=== PATIENT | female | born 1970 | race Hispanic/Latino ===

== ENCOUNTER 2018-04-01 03:17 | Emergency (ER) | payer BC ==
[2018-04-01 03:33] LABS: Blood, Urine Large (Negative); Clarity Cloudy (Clear)
[2018-04-01 03:34] LABS: Glucose, Urine (Dipstick) Unable to Interpret mg/dL (Negative); Leukocyte Unable to Interpret (Negative); Nitrite Unable to Interpret (Negative); Specific Gravity, Urine 1.022 (1.002-1.036)
[2018-04-01 03:35] LABS: Bilirubin Unable to Interpret (Negative); Urobilinogen UNABLE TO INTERPRET mg/dL (0.2-1.0)
[2018-04-01 03:40] LABS: Protein, Urine (Dipstick) > or equal to 300 mg/dL (Neg-Trace)
[2018-04-01 03:44] LABS: Bacteria/HPF 3+ HPF (None Seen); Crystals/HPF None Seen HPF (Negative); Hyaline Casts/LPF NONE SEEN LPF (0-3 Hyaline); RBC/HPF GREATER THAN 50-TNTC HPF (0-3)
[2018-04-01] MEDS ORDERED: cefTRIAXone\\ROCEPHIN 1 GM VIAL ONE (03:45)
[2018-04-01] MEDS ORDERED: Ketorolac Tromethamine 30 MG/ML VIAL ONE (03:45)
[2018-04-01] MEDS ORDERED: Sodium Chloride 0.9% 100 ML ONE (03:46)
[2018-04-01 03:51] LABS: #Basophils 0.1 thou/uL (0.0-0.2); #Eosinphils 0.2 thou/uL (0.0-0.7); #Lymphocytes 1.6 thou/uL (1.20-3.40); #Monocytes 0.8 thou/uL (0.11-0.59); #Neutrophils 8.5 thou/uL (1.40-6.50); %Basophils 0.8 % (0.0-1.0); %Eosinophils 1.6 % (0.0-10.0); %Neutrophils 76.6 % (42.0-75.0); Mean Corpuscular HGB CONC 36.3 g/dL (32.0-36.0); Mean Corpuscular Hemoglobin 32.2 pg (27.0-31.0); Mean Corpuscular Volume 88.5 fL (78.0-98.0); Mean Platelet Volume 8.5 fL (7.4-10.4); Platelet Count 230 thou/uL (130-400); Pregnancy Test - Urine (BHCG) Negative (Negative); Pregu Control Background? CLEAR/WHITE (CLR/WHITE); Pregu Control Bar Appear? YES (CONTROL BAR); RBC Distribution Width 10.2 % (11.5-14.5); Red Blood Cell (RBC) Count 4.37 mill/uL (4.20-5.40); Specific Gravity 1.022 (1.002-1.036); White Blood Cell (WBC) Count 11.1 thou/uL (4.8-10.8)
[2018-04-01 04:02] LABS: ALT (SGPT) 32 U/L (8-55); AST (SGOT) 19 U/L (5-34); Albumin 4.4 g/dL (3.5-5.0); Alkaline Phosphatase 64 U/L (40-150); Anion Gap 14 mmol/L (10-20); BUN (Urea Nitrogen) 13 mg/dL (7.0-18.7); Bilirubin, Total 0.4 mg/dL (0.2-1.2); Calc. Creatinine Clearance 0 mL/min (70-130); Calcium 9.5 mg/dL (7.8-10.44); Carbon Dioxide 24 mmol/L (22-29); Chloride 104 mmol/L (98-107); Estimated GFR-MDRD Greater than 90; Globulin 3.3 g/dL (2.4-3.5); Glucose 114 mg/dL (70-105); Potassium 3.9 mmol/L (3.5-5.1); Protein, Total 7.7 g/dL (6.0-8.3); Sodium 138 mmol/L (136-145)
== END 2018-04-01 04:51 | disposition home or self-care (01) ==
LOC: SCSER 03:17 → EEVIPCON 03:17 → SCSER 04:51
DX: N30.01 Acute cystitis with hematuria (principal)
CPT/HCPCS: 80053; 81003; 81015; 81025; 85025; 87077; 87086; 87186; 96365; 96375; J0696; J1885; J7050

== ENCOUNTER 2018-06-17 15:47 | Outpatient (CLI) | payer BC | END 2018-06-17 15:48 | disposition home or self-care (01) | LOC: BICMAMMO 15:47 | PROVIDERS: ATTEND Obstetrics & Gynecology | DX: Z12.31 Encounter for screening mammogram for malignant neoplasm of breast (principal); L90.5 Scar conditions and fibrosis of skin; Z98.890 Other specified postprocedural states | CPT/HCPCS: 77063; 77067 ==

== ENCOUNTER 2019-10-13 14:15 | Outpatient (CLI) | payer BC ==
--- NOTE | 2019-10-13 15:40 | MMO ---
Bilateral MAMMO Bilat Diag [facility]. CLINICAL HISTORY: Patient is 49 years old and is seen for diagnostic exam and lump or thickening in the left breast. The patient has no family history of breast cancer. The patient has no personal history of cancer. The patient has a history of bilateral Breast reduction in 2002 - benign. VIEWS: The views performed were: bilateral craniocaudal with tomosynthesis; bilateral mediolateral oblique with tomosynthesis; and bilateral mediolateral with tomosynthesis. FILMS COMPARED: The present examination has been compared to prior imaging studies performed at [facility] on 05/10/2016, 06/17/2018 and 10/13/2019, and at [facility] on 11/17/2014. This study has been interpreted with the assistance of computer-aided detection. MAMMOGRAM FINDINGS: There are scattered fibroglandular densities. Finding 1: There are stable benign appearing calcifications seen in both breasts. Finding 2: There is an oval mass measuring 13 millimeters with obscured margins seen in the sub-areolar region of the left breast. The ultrasound appearance of this process suggests a skin lesion. IMPRESSION: FINDING 2: MASS IN THE LEFT BREAST IS SUSPICIOUS. SURGICAL CONSULTATION IS RECOMMENDED. THE RESULTS OF THIS EXAM WERE SENT TO THE PATIENT. ACR BI-RADS Category 4 - Suspicious abnormality - biopsy should be considered MAMMOGRAPHY NOTE: 1. A negative mammogram report should not delay a biopsy if a dominant of clinically suspicious mass is present. 2. Approximately 10% to 15% of breast cancers are not detected by mammography. 3. Adenosis and dense breasts may obscure an underlying neoplasm. Reported by: DILIP HUBER MD Electonically Signed: [id number]
--- NOTE | 2019-10-13 15:43 | MMO ---
Left US Breast Limited Lt. CLINICAL HISTORY: Patient is 49 years old and is seen for . The patient has a history of bilateral Breast reduction in 2003 - benign. VIEWS: The views performed were: . FILMS COMPARED: The present examination has been compared to prior imaging studies performed at [facility] on 05/10/2016, 06/17/2018 and 10/13/2019, and at [facility] on 11/17/2014. This study has been interpreted with the assistance of computer-aided detection. LEFT BREAST ULTRASOUND FINDINGS: There is a circumscribed 1.6 cm oval hypoechoic mass near the dermal-parenchymal junction of the subareolar region of the left breast in the area of palpable concern. No internal flow is detected. IMPRESSION: FINDINGS SUGGEST A SKIN LESION. SURGICAL CONSULTATION IS RECOMMENDED. THE RESULTS OF THIS EXAM WERE SENT TO THE PATIENT. ACR BI-RADS Category 4 - Suspicious abnormality - biopsy should be considered MAMMOGRAPHY NOTE: 1. A negative mammogram report should not delay a biopsy if a dominant of clinically suspicious mass is present. 2. Approximately 10% to 15% of breast cancers are not detected by mammography. 3. Adenosis and dense breasts may obscure an underlying neoplasm. Reported by: DILIP HUBER MD Electonically Signed: [id number]
== END 2019-10-13 14:16 | disposition home or self-care (01) ==
LOC: BICMAMMO 14:15
PROVIDERS: ATTEND Physician Assistant
DX: N63.20 Unspecified lump in the left breast, unspecified quadrant (principal)
CPT/HCPCS: 77066; G0279

== ENCOUNTER 2021-01-17 06:29 | Day surgery (SDC) | payer BC ==
[2021-01-16 11:43] VITALS: BMI 27.1
[2021-01-17] MEDS ORDERED: AFRIN NASAL MIST 15 ML BOT ONE ×2 (07:02→07:56)
[2021-01-17] MEDS ORDERED: Midazolam HCl 2 mg/2 ml Vial ONE (07:19)
[2021-01-17] MEDS ORDERED: Acetaminophen 500 MG TAB ONE (07:19)
[2021-01-17] MEDS ORDERED: Famotidine/PF 20 mg/2ml Vial ONE ×2 (07:19→08:12)
[2021-01-17 07:33] LABS: BHCG - Serum Negative (NEGATIVE); Pregs Control Background? CLEAR/WHITE (CLR/WHITE); Pregs Control Bar Appear? YES (CONTROL BAR)
[2021-01-17] MEDS ORDERED: Bacitracin Zinc Ointment 30 gm TUBE ONE (07:56)
[2021-01-17] MEDS ORDERED: Lidocaine 1% w/Epinephrine 1:100K 20 ML VIAL ONE (07:56)
[2021-01-17] MEDS ORDERED: Ondansetron PF 4 MG/2 ML Vial ONE ×2 (08:12→08:38)
[2021-01-17] MEDS ORDERED: Fentanyl 100 MCG/2 ML VIAL ONE (08:12)
[2021-01-17] MEDS ORDERED: Metoclopramide HCl 10 MG/2 ML VIAL ONE ×2 (08:12→08:38)
[2021-01-17] MEDS ORDERED: Ketorolac Tromethamine 30 MG/ML VIAL ONE (08:38)
[2021-01-17] MEDS ORDERED: Lidocaine 1% PF 5 ML VIAL ONE (08:38)
[2021-01-17] MEDS ORDERED: Dexamethasone 20 MG/5 ML VIAL ONE (08:38)
[2021-01-17] MEDS ORDERED: PROPOFOL 200 MG/20 ML VIAL ONE (08:38)
[2021-01-17] MEDS ORDERED: methylPREDNISolone Acetate 40 mg/ml Vial ONE (08:54)
[2021-01-17] MEDS ORDERED: HYDROcodone/Acetaminophen 5/325 mg Tablet ONE (10:36)
== END 2021-01-17 11:34 | disposition home or self-care (01) ==
LOC: SDC 06:29
PROVIDERS: ATTEND Otolaryngology Plastic Surgery within the Head & Neck
PROC: 0NSBXZZ Reposition Nasal Bone, External Approach (ICD-10-PCS; principal; 2021-01-17)
PROC: 09SM4ZZ Reposition Nasal Septum, Percutaneous Endoscopic Approach (ICD-10-PCS; principal; 2021-01-17)
DX: S02.2XXA Fracture of nasal bones, initial encounter for closed fracture (principal); J34.2 Deviated nasal septum; J34.3 Hypertrophy of nasal turbinates; J34.89 Other specified disorders of nose and nasal sinuses; E03.9 Hypothyroidism, unspecified; Z79.899 Other long term (current) drug therapy; W18.30XA Fall on same level, unspecified, initial encounter; Y92.002 Bathroom of unspecified non-institutional (private) residence as the place of occurrence of the external cause
CPT/HCPCS: 36415; 84703; 85014; J1100; J1885; J2250; J2405; J2704; J2765; J2920; J3010; S0028